=== PATIENT | male | born 1960 | race African-American/Black ===

== ENCOUNTER 2017-03-05 12:36 | Emergency (ER) | payer MEDICARE, MEDICAID | END 2017-03-05 13:05 | disposition home or self-care (01) | LOC: MADERS 12:36 | DX: I10 Essential (primary) hypertension (principal) | CPT/HCPCS: 99283 ==

== ENCOUNTER 2018-02-21 15:04 | Emergency (ER) | payer MEDICARE, MEDICAID ==
[~2018-02-21 15:04] MED LIST: EPINEPHrine 1 MG/10 ML Abboject SYRINGE ONE; Sodium Bicarb 50 MEQ/50 ML Abboject 8.4% SYRINGE ONE
[2018-02-21 15:23] LABS: INR-International Normal Ratio 1.3; Prothrombin Time 16.3 SEC (12.0-14.7)
[2018-02-21 15:25] LABS: Eosinophils 1 % (0-10); Hemoglobin 11.5 g/dL (14.0-18.0); Lymphocytes 66 % (21-51); MDiff Complete? YES; Mean Corpuscular HGB CONC 30.6 g/dL (32.0-36.0); Mean Corpuscular Hemoglobin 30.1 pg (27.0-31.0); Mean Corpuscular Volume 98.5 fL (78.0-98.0); Mean Platelet Volume 5.2 fL (7.4-10.4); Monocytes 8 % (0-10); Neutrophil 25 % (42-75); PLT Morphology Comment Appears Adequate; Platelet Count 187 thou/uL (130-400); RBC Distribution Width 13.1 % (11.5-14.5); Red Blood Cell (RBC) Count 3.82 mill/uL (4.70-6.10); White Blood Cell (WBC) Count 3.4 thou/uL (4.8-10.8)
[2018-02-21 15:31] LABS: ALT (SGPT) 152 U/L (8-55); AST (SGOT) 160 U/L (5-34); Albumin 2.7 g/dL (3.5-5.0); Alkaline Phosphatase 104 U/L (40-150); Anion Gap 21 mmol/L (10-20); BUN (Urea Nitrogen) 19 mg/dL (8.4-25.7); Bilirubin, Total 0.4 mg/dL (0.2-1.2); Calc. Creatinine Clearance 0 mL/min (70-130); Calcium 7.8 mg/dL (7.8-10.44); Carbon Dioxide 16 mmol/L (22-29); Chloride 112 mmol/L (98-107); Estimated GFR-MDRD 53; Globulin 2.6 g/dL (2.4-3.5); Glucose 230 mg/dL (70-105); Potassium 3.3 mmol/L (3.5-5.1); Protein, Total 5.3 g/dL (6.0-8.3); Sodium 146 mmol/L (136-145)
[2018-02-21 15:34] LABS: CKMB 2.2 ng/mL (0-6.6)
[2018-02-21 15:37] LABS: Troponin I 0.301 ng/mL (< 0.028)
[2018-02-21] MEDS ORDERED: Benzonatate 100 MG CAP ONE (18:59)
== END 2018-02-21 15:20 | disposition expired ==
LOC: MADERS 15:04
DX: I46.9 Cardiac arrest, cause unspecified (principal); I10 Essential (primary) hypertension
CPT/HCPCS: 80053; 82553; 84484; 85025; 85610; 85730; 96374; 96375; J0171